=== PATIENT | male | born 1945 | race Hispanic/Latino ===

== ENCOUNTER → 2020-08-02 | Outpatient (CLI) | payer MEDICARE ==
[~2020-08-02] MED LIST: ADVIL PM CAPLE1 EACH PO; ALEVE220 M1 PO; ASPIRIN81 MG PO; Aspirin PO; BUPROPION HCL150 M2 PO; FENOFIBRATE145 MG PO; FINASTERIDE5 MG PO; HYDROCODON-ACE1 EA11 PO; MECLIZINE HCL12.5 MG PO; MELOXICAM7.5 MG PO; MULTIVITAMINS1 EAC7 PO; NABUMETONE500 MG PO; NORCO 7.5-3251 EACH PO; OSTEO BI-FLEX1 EAC1 PO; OXYBUTYNIN CHLO10 MG PO; POTASSIUM CHLORIDE PO; PRAVASTATIN SOD20 MG PO; REGADENOSON 0.4 MG/5 ML SYR IV ONE; TYLENOL ES PO; ULTRAM 50MG50 MG PO; [UNRECOGNIZED DRUG - OTHER] PO
== END ==
LOC: NM 11:00
PROVIDERS: ATTEND Internal Medicine Interventional Cardiology
DX: R07.9 Chest pain, unspecified (principal)
CPT/HCPCS: 78452; 93017; A9502

== ENCOUNTER → 2024-01-22 | Day surgery (SDC) | payer MEDICARE ==
[2024-01-20 16:21] LABS: BASOPHILS % 0.3 % (0.0-1.0); EOSINOPHILS # (AUTO) 0.2 (0.0-0.4); EOSINOPHILS % 2.1 % (0.0-6.0); HEMATOCRIT 39.9 % (38.2-49.6); HEMOGLOBIN 12.3 g/dL (14.0-18.0); LYMPHOCYTES # (AUTO) 1.4 (1.0-3.2); LYMPHOCYTES % 17.4 % (18.0-39.1); MEAN CORPUSCULAR HEMOGLOBIN 30.4 pg (28-32); MEAN CORPUSCULAR HGB CONC 30.8 g/dL (31-35); MEAN CORPUSCULAR VOLUME 98.5 fL (81-99); MONOCYTES # (AUTO) 0.9 (0.2-0.8); MONOCYTES % 11.5 % (4.4-11.3); NEUTROPHILS # (AUTO) 5.4 (2.1-6.9); NEUTROPHILS % 68.3 % (38.7-80.0); PLATELET COUNT 160 x10e3/uL (140-360); RED BLOOD COUNT 4.05 x10e6/uL (4.3-5.7); RED CELL DISTRIBUTION WIDTH 13.3 % (11.7-14.4); WHITE BLOOD COUNT 7.97 x10e3/uL (4.8-10.8)
[~2024-01-22] MED LIST changes: +ARICEPT5 MG PO; +CYMBALTA20 MG PO; +EPHEDRINE SULFATE INJ 50 MG/ML VIAL ONE; +FAMOTIDINE20 MG PO; +FOLIC ACID0.4 MG PO; +GABAPENTIN300 MG PO; +GLYCOPYRROLATE INJ 0.2 MG/ML VIAL ONE; +LIDOCAINE HCL 2% LOCAL INJ 5 ML SDV VIAL INJ ONE; +LIPITOR10 MG PO; +PHENYLEPHRINE HCL 1% 10 MG/ML VIAL ONE; +PROPOFOL IV EMULSION 10 MG/ML 20 ML VIAL ONE; -REGADENOSON 0.4 MG/5 ML SYR IV ONE; +SERTRALINE HCL50 MG PO; +VESICARE5 MG PO; +VIT D3 PO; +ZESTRIL10 MG PO
[2024-01-22] MEDS: LACTATED RINGER'S 1,000 ML ONE (10:07)
[2024-01-22 13:38] VITALS: TEMP 97.2
[2024-01-22 14:10] VITALS: BP 118/72; PULSE 78; RESP 18; O2SAT 97
== END | disposition home or self-care (01) ==
LOC: OR 09:15
PROVIDERS: ATTEND Internal Medicine Gastroenterology
DX: Z12.11 Encounter for screening for malignant neoplasm of colon (principal); D12.8 Benign neoplasm of rectum; K63.5 Polyp of colon
CPT/HCPCS: 36415; 85025; 93005; J2003; J2371; J2704; J7121; 45378; 45385